=== PATIENT | male | born 1965 | race Caucasian/White ===

== ENCOUNTER 2019-02-28 02:24 | Outpatient (CLI) | payer BC ==
[~2019-02-28 02:24] MED LIST: CHOL2000 PO; COMMODE; FENO145T36 PO; MELO-102 PO; OMEG1CAP46 PO; ROSU20TA2 PO; TRAM50TA2 PO; VALS1TAB75 PO
== END 2019-02-28 23:59 | disposition home or self-care (01) ==
LOC: DIABETIC 02:24
PROVIDERS: ATTEND Specialist
DX: E11.65 Type 2 diabetes mellitus with hyperglycemia (principal); I10 Essential (primary) hypertension; Z79.899 Other long term (current) drug therapy
CPT/HCPCS: G0108

== ENCOUNTER 2019-04-07 01:03 | Outpatient (CLI) | payer BC ==
[~2019-04-07 01:03] MED LIST changes: +FENO145T26 PO; -FENO145T36 PO; -VALS1TAB75 PO; +VALS1TAB76 PO
== END 2019-04-07 23:59 | disposition home or self-care (01) ==
LOC: DIABETIC 01:03
PROVIDERS: ATTEND Specialist
DX: E11.65 Type 2 diabetes mellitus with hyperglycemia (principal)
CPT/HCPCS: G0108